=== PATIENT | female | born 2000 | race Two or more races ===

== ENCOUNTER 2023-01-27 07:23 | Emergency (ER) | payer OTHER ==
[~2023-01-27] VITALS: Ht 157.5 cm; Wt 59.0 kg
[2023-01-27] MEDS ORDERED: PEPCID AC20 MG PO (09:59)
[2023-01-27] MEDS ORDERED: AMOX-CLAV 875-1 EACH PO (09:59)
== END 2023-01-27 10:08 | disposition home or self-care (01) ==
LOC: ER 07:23
DX: J03.90 Acute tonsillitis, unspecified (principal)
CPT/HCPCS: 36415; 96365; 96372; 99284; J0696; J1100; J1885